=== PATIENT | male | born 1965 | race Caucasian/White ===

== ENCOUNTER 2022-10-30 07:57 | Day surgery (SDC) | payer MEDICARE, MEDICAID ==
[~2022-10-30] VITALS: Ht 167.6 cm; Wt 77.6 kg
[~2022-10-30 07:57] MED LIST: ASPI81CA PO; BACL10TA PO; GABA-1250 PO; HYDR-4798 PO; SERT-206 PO; SIMV20TA20 PO; TAMS0.4C36 PO
[2022-10-30] MEDS ORDERED: IODIXANOL 320MG/ML 100ML BTL IV ONE (09:34)
[2022-10-30] MEDS ORDERED: LIDOCAINE 2%HCL (LOCAL ANESTH.) INJ 20ML MDV ONE (09:34)
[2022-10-30] MEDS ORDERED: ANGIOMAX 250 MG VIAL IV ONE (09:36)
[2022-10-30] MEDS ORDERED: VERAPAMIL 2.5MG/ML INJ 2ML VIAL IV ONE (09:36)
[2022-10-30] MEDS ORDERED: fentaNYL CITRATE 100 MCG/2 ML VL ONE (09:36)
[2022-10-30] MEDS ORDERED: MIDAZOLAM HCL 2MG/2ML 2ml VIAL (1mg/ml) ONE (09:36)
[2022-10-30] MEDS ORDERED: SODIUM CHL 0.9% 0 ML ONE (09:37)
[2022-10-30] MEDS ORDERED: HEPARIN SODIUM (PORCINE) 5000 UNITS/ML 1ML VIAL ONE (09:42)
== END 2022-10-30 12:00 | disposition home or self-care (01) ==
LOC: CATH 07:57
PROVIDERS: ATTEND Internal Medicine
DX: R94.39 Abnormal result of other cardiovascular function study (principal); I20.9 Angina pectoris, unspecified; F41.8 Other specified anxiety disorders; E78.5 Hyperlipidemia, unspecified; N40.0 Benign prostatic hyperplasia without lower urinary tract symptoms; J43.9 Emphysema, unspecified; F17.210 Nicotine dependence, cigarettes, uncomplicated; Z79.82 Long term (current) use of aspirin; Z79.1 Long term (current) use of non-steroidal anti-inflammatories (NSAID); Z88.6 Allergy status to analgesic agent; Z79.891 Long term (current) use of opiate analgesic; Z79.899 Other long term (current) drug therapy
CPT/HCPCS: 76937; 93458; C1725; C1894; J1644; J2250; J3010; Q9967; 99152

== ENCOUNTER 2023-10-16 09:38 | Emergency (ER) | payer OTHER, MEDICAID ==
[~2023-10-16] VITALS: Ht 167.6 cm; Wt 75.4 kg
[2023-10-16 11:02] VITALS: BP 129/77; PULSE 65; RESP 16; TEMP 98.5; O2SAT 95
[2023-10-16] MEDS: GABAPENTIN 300 MG CAP PO ONE (11:37)
[2023-10-16] MEDS: DexAMETHasone SOD PHOS 10MG/1ML VIAL INJ IM ONE (11:38)
[2023-10-16] MEDS ORDERED: GABA-1250 PO (12:09)
[2023-10-16] MEDS ORDERED: PRED20TA2 PO (12:09)
[2023-10-16] MEDS ORDERED: METH-1181 PO (12:09)
== END 2023-10-16 12:30 | disposition home or self-care (01) ==
LOC: ER 09:38
DX: G24.3 Spasmodic torticollis (principal); Z79.82 Long term (current) use of aspirin; Z79.899 Other long term (current) drug therapy; Z88.8 Allergy status to other drugs, medicaments and biological substances
CPT/HCPCS: 72125; 96372; 99285; J1100

== ENCOUNTER → 2023-11-14 | Outpatient (CLI) | payer OTHER ==
[~2023-11-14] MED LIST changes: +METH-1181 PO; +PRED20TA2 PO
[2023-11-14 10:44] LABS: Urine Bacteria None Seen /hpf (None Seen)
[2023-11-14 11:15] LABS: Basophils # (auto) 0.1 10 ^3/uL (0-0.2); Hematocrit 38.5 % (41.0-53.0); Hemoglobin 13.5 g/dL (13.5-17.5); Lymphocytes # (auto) 2.6 10 ^3/uL (0.4-5.4); Mean Corpuscular Hgb Conc. 35.2 g/dL (32.0-36.0); Monocytes # (auto) 0.9 10 ^3/uL (0-1.3); Monocytes % (auto) 12.5 % (0.0-12.0); Neutrophils # (auto) 3.2 10 ^3/uL (1.6-8.6)
[2023-11-14 11:16] LABS: Urine Blood Negative /uL (Negative); Urine Clarity Clear (Clear); Urine Color Yellow (Yellow); Urine Mucus FEW (None Seen); Urine Protein, UAD TRACE (Negative); Urine Specific Gravity 1.034 (1.001-1.035); Urine Urobilinogen Normal (Negative); Urine WBC 1 /hpf (0 - 3); Urine pH 5.5 (5.0-9.0)
[2023-11-14 11:17] LABS: Basophils % (auto) 0.7 % (0.0-2.0); Eosinophils # (auto) 0.4 10 ^3/uL (0-0.8); Eosinophils % (auto) 5.2 % (0.0-7.0); Lymphocytes % (auto) 36.5 % (10.0-50.0); Mean Corpuscular Hemoglobin 32.9 pg (28.0-32.0); Mean Corpuscular Volume 93.6 fL (80.0-100.0); Neutrophils % (auto) 45.1 % (37.0-80.0); Nucleated Red Blood Cells % 0.1 %; Red Blood Cells 4.11 10^6/uL (4.5-5.90); Red Cell Distribution Width 13.7 % (11.8-14.3); White Blood Cell 7.1 10^3/uL (4.4-10.8)
[2023-11-14 11:24] LABS: Anion Gap 2 (5-15); Calcium 9.2 mg/dL (8.5-10.1); Carbon Dioxide 24 mmol/L (20-30); Chloride 113 mmol/L (98-107); Potassium 4.3 mmol/L (3.5-5.1); Prostate Specific Antigen 0.62 ng/mL (0.0-4.0); Sodium 139 mmol/L (136-145)
[2023-11-14 11:29] LABS: Folate (Folic Acid) 17.04 ng/mL (>5.38)
[2023-11-14 11:30] LABS: Blood Urea Nitrogen 8 mg/dL (9-23); Glucose 118 mg/dL (74-106); Leuteinizing Hormone 7.1 IU/L (1.5-9.3); Triglycerides 168 mg/dL (< 150)
[2023-11-14 11:31] LABS: Cholesterol 110 mg/dL (< 200); LDL Cholesterol 53 mg/dL (< 100)
[2023-11-14 11:32] LABS: HDL Cholesterol 27 mg/dL (40-59)
[2023-11-14 11:51] LABS: Uric Acid 5.8 mg/dL (3.7-9.2)
== END | disposition home or self-care (01) ==
LOC: LAB 10:34
PROVIDERS: ATTEND Internal Medicine
DX: Z12.5 Encounter for screening for malignant neoplasm of prostate (principal); E78.1 Pure hyperglyceridemia; Z68.26 Body mass index [BMI] 26.0-26.9, adult; Z79.899 Other long term (current) drug therapy
CPT/HCPCS: 36415; 80048; 80061; 81001; 82306; 82607; 82746; 83002; 83036; 84153; 84443; 84550; 85025; 87086

== ENCOUNTER 2023-12-19 15:33 | Emergency (ER) | payer OTHER, MEDICAID ==
[~2023-12-19] VITALS: Ht 167.6 cm; Wt 80.0 kg
[2023-12-19 17:09] VITALS: BP 120/75; PULSE 95; RESP 18; TEMP 98.3; O2SAT 97
== END 2023-12-19 18:06 | disposition home or self-care (01) ==
LOC: ER 15:33
DX: S83.8X2A Sprain of other specified parts of left knee, initial encounter (principal); S93.492A Sprain of other ligament of left ankle, initial encounter; S63.592A Other specified sprain of left wrist, initial encounter; Z88.8 Allergy status to other drugs, medicaments and biological substances; Z79.899 Other long term (current) drug therapy; W01.0XXA Fall on same level from slipping, tripping and stumbling without subsequent striking against object, initial encounter; Y93.89 Activity, other specified; Y92.89 Other specified places as the place of occurrence of the external cause; Y99.8 Other external cause status
CPT/HCPCS: 73110; 73562; 73610

== ENCOUNTER → 2024-03-10 | Outpatient (CLI) | payer OTHER, MEDICAID ==
[~2024-03-10] MED LIST changes: -TAMS0.4C36 PO; +TAMS0.4C39 PO
== END | disposition home or self-care (01) ==
LOC: XYW 11:03
PROVIDERS: ATTEND Internal Medicine
DX: E04.1 Nontoxic single thyroid nodule (principal); F17.210 Nicotine dependence, cigarettes, uncomplicated; Z88.6 Allergy status to analgesic agent; Z79.82 Long term (current) use of aspirin
CPT/HCPCS: 10005; 76536; 76942

== ENCOUNTER → 2024-05-01 | Outpatient (CLI) | payer OTHER, MEDICAID ==
[2024-05-01 13:49] LABS: Basophils # (auto) 0.1 10 ^3/uL (0-0.2); Basophils % (auto) 0.8 % (0.0-2.0); Eosinophils # (auto) 0.4 10 ^3/uL (0-0.8); Eosinophils % (auto) 3.2 % (0.0-7.0); Hematocrit 36.9 % (41.0-53.0); Hemoglobin 12.5 g/dL (13.5-17.5); Lymphocytes # (auto) 3.2 10 ^3/uL (0.4-5.4); Lymphocytes % (auto) 25.8 % (10.0-50.0); Mean Corpuscular Hemoglobin 31.7 pg (28.0-32.0); Mean Corpuscular Hgb Conc. 33.8 g/dL (32.0-36.0); Mean Corpuscular Volume 93.8 fL (80.0-100.0); Monocytes # (auto) 1.4 10 ^3/uL (0-1.3); Monocytes % (auto) 10.9 % (0.0-12.0); Neutrophils # (auto) 7.4 10 ^3/uL (1.6-8.6); Neutrophils % (auto) 59.3 % (37.0-80.0); Nucleated Red Blood Cells % 0.1 %; Platelet Count (auto) 401 10^3/uL (140-450); Red Blood Cells 3.94 10^6/uL (4.5-5.90); Red Cell Distribution Width 13.8 % (11.8-14.3); White Blood Cell 12.5 10^3/uL (4.4-10.8)
[2024-05-01 14:16] LABS: Alanine Aminotransferase 25 U/L (7-40); Alkaline Phosphatase 110 U/L (46-116); Anion Gap 8 (5-15); Aspartate Aminotransferase 20 U/L (13-40); BUN/Creatinine Ratio 7.5 (10.0-20.0); Calcium 9.9 mg/dL (8.7-10.4); Carbon Dioxide 24 mmol/L (20-31); Chloride 106 mmol/L (98-107); Potassium 3.7 mmol/L (3.5-5.1); Sodium 138 mmol/L (136-145)
[2024-05-01 14:17] LABS: Albumin 4.3 g/dL (3.2-4.8); Bilirubin, Total 0.3 mg/dL (0.2-1.0); Blood Urea Nitrogen 8 mg/dL (9-23); Glucose 108 mg/dL (74-106); Total Protein 6.8 g/dL (5.7-8.2)
[2024-05-02 08:06] LABS: Immunoglobulin A 174 mg/dL (90-386); Immunoglobulin G, Serum 829 mg/dL (603-1613); Immunoglobulin M 127 mg/dL (20-172)
== END | disposition home or self-care (01) ==
LOC: LAB 13:25
PROVIDERS: ATTEND Internal Medicine
DX: K14.8 Other diseases of tongue (principal); E04.1 Nontoxic single thyroid nodule
CPT/HCPCS: 36415; 80053; 82232; 82784; 84155; 84165; 85025

== ENCOUNTER → 2024-06-15 | Outpatient (CLI) | payer OTHER ==
[2024-06-15 12:36] LABS: Basophils # (auto) 0.1 10 ^3/uL (0-0.2); Eosinophils # (auto) 0.2 10 ^3/uL (0-0.8); Hemoglobin 14.9 g/dL (13.5-17.5); Neutrophils # (auto) 3.2 10 ^3/uL (1.6-8.6)
[2024-06-15 12:39] LABS: Basophils % (auto) 2.1 % (0.0-2.0); Eosinophils % (auto) 2.9 % (0.0-7.0); Hematocrit 43.6 % (41.0-53.0); Lymphocytes # (auto) 2.8 10 ^3/uL (0.4-5.4); Lymphocytes % (auto) 40.5 % (10.0-50.0); Mean Corpuscular Hemoglobin 31.9 pg (28.0-32.0); Mean Corpuscular Hgb Conc. 34.1 g/dL (32.0-36.0); Mean Corpuscular Volume 93.5 fL (80.0-100.0); Monocytes # (auto) 0.5 10 ^3/uL (0-1.3); Monocytes % (auto) 7.7 % (0.0-12.0); Neutrophils % (auto) 46.8 % (37.0-80.0); Platelet Count (auto) 546 10^3/uL (140-450); Red Blood Cells 4.67 10^6/uL (4.5-5.90); White Blood Cell 6.9 10^3/uL (4.4-10.8)
[2024-06-15 13:07] LABS: % Iron Saturation 21.4 % (20-55)
[2024-06-15 13:09] LABS: Alanine Aminotransferase 17 U/L (7-40); Anion Gap 7 (5-15); BUN/Creatinine Ratio 6.7 (10.0-20.0); Calcium 10.2 mg/dL (8.7-10.4); Carbon Dioxide 23 mmol/L (20-31); Glucose 90 mg/dL (74-106); Magnesium 2.3 mg/dL (1.6-2.6); Potassium 4.3 mmol/L (3.5-5.1); Sodium 138 mmol/L (136-145)
[2024-06-15 13:10] LABS: Albumin 4.8 g/dL (3.2-4.8); Aspartate Aminotransferase 18 U/L (13-40); Chloride 108 mmol/L (98-107); Free T3 3.65 pg/mL (2.3-4.2); T3 Total 1.16 ng/mL (0.60-1.81)
[2024-06-15 13:11] LABS: Alkaline Phosphatase 129 U/L (46-116); Bilirubin, Total 0.2 mg/dL (0.2-1.0); Blood Urea Nitrogen 7 mg/dL (9-23); Free T4 (Free Thyroxine) 0.96 ng/dL (0.89-1.76); Thyroid Stimulating Hormone 0.45 uIU/mL (0.55-4.78); Total Protein 7.5 g/dL (5.7-8.2)
[2024-06-16 08:06] LABS: Thyroxine (T4) 5.8 ug/dL (4.5-12.0)
== END | disposition home or self-care (01) ==
LOC: LAB 11:52
PROVIDERS: ATTEND Nurse Practitioner
DX: E04.1 Nontoxic single thyroid nodule (principal); K14.8 Other diseases of tongue; Z88.6 Allergy status to analgesic agent; Z88.2 Allergy status to sulfonamides
CPT/HCPCS: 36415; 80053; 82977; 83540; 83550; 83615; 83735; 84100; 84436; 84439; 84443; 84480; 84481; 84550; 85025; 86376

== ENCOUNTER 2024-09-24 06:04 | Inpatient (IN) | payer OTHER ==
[2024-09-21 09:40] LABS: Urine Bacteria None Seen /hpf (None Seen)
[2024-09-21 09:43] LABS: Basophils # (auto) 0.1 10 ^3/uL (0-0.2); Eosinophils # (auto) 0.2 10 ^3/uL (0-0.8); Hemoglobin 15.4 g/dL (13.5-17.5); White Blood Cell 9.6 10^3/uL (4.4-10.8)
[2024-09-21 09:44] LABS: Basophils % (auto) 1.1 % (0.0-2.0); Eosinophils % (auto) 2.3 % (0.0-7.0); Hematocrit 45.5 % (41.0-53.0); Lymphocytes # (auto) 2.9 10 ^3/uL (0.4-5.4); Lymphocytes % (auto) 30.1 % (10.0-50.0); Mean Corpuscular Hgb Conc. 33.9 g/dL (32.0-36.0); Mean Corpuscular Volume 91.4 fL (80.0-100.0); Monocytes # (auto) 0.6 10 ^3/uL (0-1.3); Monocytes % (auto) 6.6 % (0.0-12.0); Neutrophils # (auto) 5.7 10 ^3/uL (1.6-8.6); Neutrophils % (auto) 59.9 % (37.0-80.0); Platelet Count (auto) 523 10^3/uL (140-450); Red Blood Cells 4.98 10^6/uL (4.5-5.90); Red Cell Distribution Width 14.6 % (11.8-14.3)
[2024-09-21 09:48] LABS: Urine Blood Negative /uL (Negative); Urine Clarity Clear (Clear); Urine Color Light-Yellow (Yellow); Urine Protein, UAD Negative (Negative); Urine Squamous Epithelial Cell FEW /hpf (<5); Urine Urobilinogen Normal (Negative); Urine WBC < 1 /HPF (0-3); Urine pH 5.5 (5.0-9.0)
[2024-09-21 10:05] LABS: INR 0.97 (0.9-1.15); Partial Thromboplastin Time 34.6 SEC (24.5-34.5); Prothrombin Time 10.3 sec (9.3-11.8)
[2024-09-21 10:09] LABS: Alanine Aminotransferase 14 U/L (7-40); Anion Gap 10 (5-15); BUN/Creatinine Ratio 12.1 (10.0-20.0); Bilirubin, Total 0.3 mg/dL (0.2-1.0); Blood Urea Nitrogen 12 mg/dL (9-23); Carbon Dioxide 20 mmol/L (20-31); Potassium 3.7 mmol/L (3.5-5.1); Sodium 139 mmol/L (136-145); Total Protein 7.8 g/dL (5.7-8.2)
[2024-09-21 10:12] LABS: Albumin 4.9 g/dL (3.2-4.8); Alkaline Phosphatase 119 U/L (46-116); Aspartate Aminotransferase 12 U/L (13-40); Calcium 10.4 mg/dL (8.7-10.4); Chloride 109 mmol/L (98-107); Glucose 125 mg/dL (74-106)
[2024-09-24] VITALS (7 sets, daily range): BP systolic 123–137; BP diastolic 65–81; PULSE 52–85; RESP 14–18; TEMP 97.4–97.9; O2SAT 94–96
[~2024-09-24] VITALS: Ht 167.6 cm; Wt 81.5 kg
[~2024-09-24 06:04] MED LIST changes: -ASPI81CA PO; -BACL10TA PO; -HYDR-4798 PO; -METH-1181 PO; -SIMV20TA20 PO
[2024-09-24] MEDS ORDERED: ceFAZolin 2 GM/D5W50ml 50 ML IV ONE (06:15)
[2024-09-24] MEDS ORDERED: levoFLOXacin 500MG 100 ML IV ONE (06:38)
[2024-09-24] MEDS ORDERED: TRANEXAMIC ACID 20 ML ONE (06:41)
[2024-09-24] MEDS ORDERED: SUCCINYLCHOLINE CHLORIDE 20 MG/ML 10ML VIAL IV ONE (07:15)
[2024-09-24] MEDS ORDERED: ROCURONIUM 10MG/ML 10ML VIAL IV ONE (07:15)
[2024-09-24] MEDS ORDERED: HYDROmorphone HCL 2 MG/ML VL/or syr ONE (07:25)
[2024-09-24] MEDS ORDERED: MIDAZOLAM HCL 2MG/2ML 2ml VIAL (1mg/ml) ONE (07:25)
[2024-09-24] MEDS ORDERED: ONDANSETRON HCL 4 MG/2 ML VIAL ONE (07:25)
[2024-09-24] MEDS ORDERED: DexAMETHasone SOD PHOS 10MG/1ML VIAL INJ ONE (07:25)
[2024-09-24] MEDS ORDERED: fentaNYL CITRATE 100 MCG/2 ML VL ONE ×2 (07:25→09:51)
[2024-09-24] MEDS ORDERED: KETAMINE 50mg/ML 1ml syringe ONE (07:25)
[2024-09-24] MEDS ORDERED: fentaNYL CITRATE 5 ML ONE (07:25)
[2024-09-24] MEDS ORDERED: LIDOCAINE 2% TOPICAL JELLY 5 ML URJT TOP ONE (07:25)
[2024-09-24] MEDS ORDERED: PROPOFOL 10 MG/ML 20 ML IV ONE ×2 (07:25→09:40)
[2024-09-24] MEDS ORDERED: LIDOCAINE 1% INJ PF 5ML AMP ONE (07:25)
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
[2024-09-24] MEDS ORDERED: SODIUM CHLORIDE LOCK 40 ML ONE (09:40)
[2024-09-24] MEDS ORDERED: GLYCOPYRROLATE 0.2 MG/ML 1ML VIAL ONE (09:43)
[2024-09-24] MEDS ORDERED: NEOSTIGMINE 1 MG/ML INJ (10mg/10ML VIAL) ONE (09:43)
[2024-09-24] MEDS ORDERED: SODIUM CHLORIDE LOCK 20 ML ONE (09:52)
--- NOTE | 2024-09-24 10:38 | DVHOP2 ---
Operative Report - 2 Report Details Date: 09/24/24 Preop Diagnosis: cervical spinal stenosis with incapacitating radiculopathy Postop Diagnosis: same Surgeon: Terry Phillip MD Recreation Therapy Aide: Denia Meade NP Anesthesiologist: dr. sandoval Anesthesia: General Consent: The patient was informed of the risks and benefits of the procedure. These include but are not limited to complications of anesthesia, postoperative infection, incomplete relief of symptoms, recurrence of symptoms, damage to blood vessels, nerves and tendons, deep venous thrombosis, pulmonary embolism and possible need for repeat surgery in the future. Name of Procedure Performed see detailed note Procedure Details Procedure Details: Pre Op Diagnosis: Cervical Degenerative Disk Disease and Severe Spinal Stenosis Causing incapacitating neck pain, radiculopathy and progressive neurologic deficit Post Op Diagnosis: Cervical Degenerative Disk Disease and Spinal Stenosis Causing incapacitating neck pain, radiculopathy and progressive neurologic deficit Procedure: Cervical 3 to 4 anterior cervical discectomy with Cervical 3-4 foraminotomies and facetectomies to decompression the spinal canal and Cervical 4 nerve roots Cervical 4 to 5 anterior cervical discectomy with Cervical 4-5 foraminotomies and facetectomies to decompression the spinal canal and Cervical 5 nerve roots Cervical 3-5 anterior cervical Fusion Cervical 3-5 anterior cervical instrumentation with freestanding cages Cervical 3-4 placement of allograft prosthetic device Cervical 4-5 placement of allograft prosthetic device Surgeon: Terry Phillip MD Anesthesia: General Assist: Denia Meade NP Fluids and EBL: see anesthesia note Procedure Note: The patient was seen in the Pre-anesthesia Care Unit and the site of the inci ilia was initialed by me with a felt tipped marker. All questions by the patient were answered to the satisfaction of the patient and the chart was reviewed. The patient was taken to the operating room and placed supine on the [facility] [place] top table. General anesthesia was induced. Neuromonitoring leads were placed. A rolled towel was placed between the shoulder blades to hyperextend out the chest which will allow better exposure of the cervical spine. Halter traction to 10 pounds was placed. The arms were padded and adducted to the patients side making sure all pulses in the hands were present. Tape traction was undertaken on the shoulders to give us better radiographic exposure of the distal cervical spine. A gel-pad was placed under the occiput and 5 degrees of extension was placed on the neck without adverse effects to the patient. The anterior neck was prepped and draped. Pre-operative antibiotics were given 30 minutes prior to the start of the procedure. A c-arm fluoroscope was used to ashley out the incision site. At this time, a time out was taken per usual protocol. Next an incision was made through the skin with a 15 blade scalpel through the subcutaneous tissue down to the platysma. Self-retainers were placed. The platysma was incised along the longitudinal border with a Metzenbaum scissors. Blunt dissection was made through the deep cervical and pre-tracheal fascia taking care to protect the carotid sheath laterally and the Trachea/esophagus medially. The dissection was carried down to the prevertebral fascia. Any crossing vessels were ligated using a vascular clip or coagulated with a bovie. An esophageal retractor was next used to retract the trachea/esophagus and a bent [address] through the anterior annulus of the cervical disk and a lateral C-arm fluoroscopic image was taken to confirm that we were at the correct level. Next, bovie electrocautery was used to expose the bones of cervical 3,4,5, and bipolar electrocautery was used to lift up the Longus colli and capitus muscles. Black-Belt Self Retainers were used to retract the longus colli and capitus muscles bilaterally as well as the trachea/esophagus to the right and the carotid sheath to the left. Smooth thin Black-Belt retractors were placed p roximally and distally and a needle was placed again in the anterior annulus of the disk and an image taken to confirm the correct level. Next, straight and curved curettes removed the remainder of the disks all the way down to the posterior longitudinal ligament. Carefully, a Kerison number one rongeur incised the posterior longitudinal ligament at the lateral end of the above disks and using a micro, blunt tip nerve hook to separate the posterior longitudinal ligament from the dura, alternating 1 mm and 2 mm Kerison rongeurs removed the posterior longitudinal ligament. Next, Kerison 1mm and 2 mm rongeurs were alternated to get under the uncinate processes and undercut them to perform foraminotomies and facetectomies at the cervical 3/4 and 4/5 levels to decompress the central canal and cervical 4,5 nerve roots. Next the c-arm fluoroscope was wheeled into the field and a l ateral image was obtained. Increasing size graft trials were used starting at a 5 mm thick size until the proper tension in the disk space and height synagogue obtained. We then placed final free standing cages at C3/4 and 4/5. Both were 7mm in thickness. Satisfactory placement was confirmed in the AP and lateral views using a C-arm fluoroscope. Copious irrigation of the wound with sterile saline and all bleeding was controlled before closure initiated. At this point, a 10 Spanish round Parde[address] Drain was place deep to the Platysma muscle and the Platysma was approximated with one interrupted 0-Vicryl suture. The subcutaneous tissue was closed with interrupted 2-0 vicryl sutures and the skin was closed with curtis. Sterile dressings were placed and a cervical collar placed, the patient extubated, transferred to the stretcher and taken to the Recovery Room in unremarkable condition. Other Notes: Condition Stable Disposition Still a Patient TERRY PHILLIP MD September 24, 2024 10:38
[2024-09-24] MEDS ORDERED: NITROGLYCERIN 0.4 MG SL TAB SL PRN (10:45)
[2024-09-24] MEDS ORDERED: MORPHINE SULFATE INJ 2 MG/ml SYRG IV PRN ×2 (10:45→12:00)
[2024-09-24] MEDS ORDERED: ACETAMINOPHEN 325 MG TAB PO PRN (10:45)
[2024-09-24] MEDS ORDERED: ONDANSETRON HCL 4 MG/2 ML VIAL IV PRN (10:45)
--- NOTE | 2024-09-24 10:54 | POSTOP ---
Post-Operative Note Post-Operative Note Preop Diagnosis Cervical degenerative disc disease and spinal stenosis causing incapacitating neck pain, radiculopathy and progressive neurologic deficit Postop Diagnosis: Cervical degenerative disc disease and spinal stenosis causing incapacitating neck pain, radiculopathy and progressive neurologic deficit Operation performed Cervical 3-5 anterior cervical diskectomy and fusion Specimen None Anesthesia: General Anesthesiologist: Dr. Yun Blood Loss(fluid mgmt) 50 mL Tourniquet Time None Surgeon Dr. Terry Phillip Stamp Classifier Denia Donnelly OPTICAL GLASS SILVERER Implant 7 mm spacers x2 3.5 x 14 mm screws x4 Complications & Mgmt None Additional Remarks Disposition: -Pending -Discharge RX: Pending -Follow up appointment: with Dr Phillip on you are scheduled postoperative appointment date and time [id number] [facility] [address] Dorantes [address] [place] [id number] -Pain: - IV pain meds post op day 1, with PO supplementation, goal is to progress weaning off IV medications and control pain with PO only. morphine 1mg q 4 hours (PAIN 7-10) - P.O. analgesics:Tylenol 650MG (PAIN 1-3) [place] 10/325 mg (PAIN 4-6) - Muscle relaxers scheduled administration. This is a beneficial medications for the incisional pain as it is mostly related to muscle spasms. Flexeril 10 mg TID - Cepacol throat lozenges as needed for sore throat -Antibiotics Operative recommendations: -Postoperative dose:-Post operative antibiotics cefazolin 1 g IV piggyback every 8 hours x 48 hours total of 6 doses -DVT PPX: -Hold all chemical DVT/ blood thinners for 14 days postoperatively -use mechanical DVT PPX such as SCD's, ambulation -Activity: -Pending PT evaluation and patients progression -Sit at side of bed for meals -Goal: Ambulate independently and safely (may use assistive devices if needed) -Medical Therapy goals: -Afebrile- Patient may develop a expected post operative fever by day 2-3, this may not be accompanied with a elevation in WBC. if fever develops: Acetaminophen for fever. Albuterol nebulizer Tx every 12 hours for 24 hours to facilitate adequate lung expansion and prevent development of atelectasis. -Euglycemic: bloods sugars under 130mmol/L for optimal healing -Normotensive: Avoid events of hypertension. This helps to keep post operative healing intact and avoids destabilization of beneficial hemostatic coagulation. Drains -Bulb drains: record output and characteristics of the drainage EVERY 6 HOURS- if there is no output indicate this by documenting 0ml output in note.. These will be to thumbprint compression unless otherwise ordered. Record output as well as amount in a note at least every 6 houtrs- more if indicated. Wound drainage is described by type, color, amount, and odor. Drainage can be 1 serous: Clear and thin, may be present in healing healthy wound. 2 serosanguineous containing blood may also be present and healthy healing wound 3. Sanguinous primarily blood 4. Purulent this is thick, white, and pus like. It may be indicated to give of a infection and should constitute a call to the provider immediately with the plan that the sample should be cultured. -Lee: -DC in OR -Dressings -Anterior cervical patients: Initial surgical dressing may be reinforced if needed. If there is excessive bleeding, leaking, drainage in the bulb drain notify provider -Bowel management: -Colace 100mg bid -Diet: -Clear liquid diet and advance as patient tolerates within dietary limitations ( example: diabetic, Cardiac) -Incentive Spirometer: -10 x hour while awake, RN please educate and observe repeat demonstration, have IS at bedside POD #1 -X-rays: - none indicated at this time -Consults: -Physical Therapy evaluation, treatment recommendations, and discharge recommendations Call with questions Nallely Donnelly ACNP- Orthopaedic Spine Surgery nurse practitioner For Dr Nicky Phillip Patient was examined, chart reviewed, labs evaluated, and diagnostic studies and findings analyzed. Case was discussed with Dr. Terry Phillip who formulated the plan of care. This medical document was created using an electronic medical record system with [employer] dictation system. Although this document has been carefully reviewed, there might still be some phonetic and typographical errors. These areas are purely typographical due to imperfections of the software programs, and do not reflect any compromise in the patient's medical care. Date 09/24/24 Time 10:48 DENIA DONNELLY NP September 24, 2024 10:54
[2024-09-24] MEDS ORDERED: THROAT LOZENGES(CEPASTAT) MT PRN (11:00)
[2024-09-24] MEDS ORDERED: MORPHINE SULFATE 4 MG/ML SYR/VIAL IV PRN (11:00)
[2024-09-24] MEDS ORDERED: METOCLOPRAMIDE HCL 5MG/ml INJ 2ml VIAL IV ONE (11:00)
[2024-09-24] MEDS ORDERED: HYDROmorphone HCL 2 MG/ML VL/or syr IV PRN (11:00)
[2024-09-24] MEDS: HYDROmorphone HCL 2 MG/ML VL/or syr IV PRN (11:19)
--- NOTE | 2024-09-24 15:40 | DVH ---
FLUOROSCOPY TIME: 10 seconds TECHNIQUE: Intraoperative radiographs of the cervical spine were obtained. COMPARISON: None FINDINGS: Refer to intraoperative report for further evaluation. IMPRESSION: Refer to intraoperative report for further evaluation.
[2024-09-24] MEDS ORDERED: TRAZ-184 PO (15:56)
[2024-09-24] MEDS ORDERED: PERCOT PO (15:56)
[2024-09-24] MEDS: CYCLOBENZAPRINE HCL 10 MG TAB PO SCH (16:15)
[2024-09-24] MEDS: ceFAZolin 1GM/50ML 50 ML IV SCH (16:16)
[2024-09-24] MEDS: D5W/SOD CHLO 0.9% 1,000 ML IV SCH (16:28)
[2024-09-24] MEDS: HYDROcodone-ACET 10/325MG TAB PO PRN (16:37)
[2024-09-24] MEDS: MORPHINE SULFATE INJ 2 MG/ml SYRG IV PRN (20:24)
[2024-09-24] MEDS: DOCUSATE SOD 100 MG CAP PO SCH (22:35)
[2024-09-25 01:00] VITALS: BP 129/70; PULSE 77; RESP 19; TEMP 97.9; O2SAT 95
[2024-09-25 05:00] VITALS: BP 141/92; PULSE 77; RESP 18; TEMP 97.8; O2SAT 93
[2024-09-25 08:00] VITALS: BP 152/87; PULSE 67; RESP 18; TEMP 97.7; O2SAT 96
--- NOTE | 2024-09-25 11:47 | DVHPN2 ---
Progress Note - Surgical Date Seen: September 25, 2024 Post op day Post op day: 1 Subjective Patient reports: No new complaints, Feels better Review of Systems: HEENT:Normal, CVS:Normal, RESPIRATORY:Normal, GI:Normal, :Normal, MSK:Normal, NEURO:Normal Objective Vital signs Vital Sign Date Time Temp Pulse Resp B/P (MAP) Pulse Ox O2 Delivery O2 Flow Rate FiO2 09/25/24 09:38 67 18 152/87 09/25/24 08:00 97.7 96 97.7 09/25/24 08:00 Room Air* 0 21 Total Intake and Output 09/24/24 09/24/24 09/25/24 15:00 23:00 07:00 Intake Total 830 ml 1200 ml Output Total 0 ml Balance 0 ml 830 ml 1200 ml Medications Current Medications Medications Dose Ordered Sig/Frank Route Start Time Stop Time Status Last Admin Dose Admin Dextrose/Sodium Chloride 1,000 ml @ 100 mls/hr Q10H IV 09/24/24 10:45 09/24/24 16:28 100 MLS/HR Ondansetron HCl 4 mg Q4HP PRN IV 09/24/24 10:45 Acetaminophen 650 mg Q6HP PRN PO 09/24/24 10:45 Acetaminophen/ Hydrocodone Bitart 1 tab Q6HP PRN PO 09/24/24 10:45 09/25/24 04:19 1 TAB Morphine Sulfate 1 mg Q4HP PRN IV 09/24/24 10:45 09/25/24 09:38 1 MG Cyclobenzaprine HCl 10 mg TID PO 09/24/24 14:00 09/25/24 05:24 10 MG Docusate Sodium 100 mg BID PO 09/24/24 22:00 09/25/24 09:36 100 MG Cefazolin Sodium 50 ml @ 100 mls/hr Q8HR IV 09/24/24 14:00 09/26/24 06:29 09/25/24 05:28 100 MLS/HR Nitroglycerin 0.4 mg Q5MINP PRN SL 09/24/24 10:45 Morphine Sulfate 2 mg Q30M PRN IV 09/24/24 10:45 Throat Lozenges 1 osei Q2HP PRN MT 09/24/24 11:00 Tamsulosin HCl 0.8 mg DAILY PO 09/26/24 10:00 Laboratory Laboratory Tests 09/21/24 09:35 Test 09/21/24 09:35 Range/Units Serum Glucose 125 H 74-106 mg/dL Examination: GENERAL:Normal, HEENT:Normal, NECK:Normal (Patient left anterior neck surgical site is well approximated with curtis minimal swelling drain is intact with minimal drainage in the past 24 hours), LUNGS:Normal, CVS:Normal, ABDOMEN:Normal, MSK:Normal (Patient is up and ambulating in his room requesting to go home, pain is under control.), SKIN:Normal (See neck assessment), NEURO:Normal (Patient reports extreme resolution in his preoperative symptoms), :Normal Problem List/Assessment/Plan Problems: (1) Postoperative pain after spinal surgery (2) Muscle spasm of back Assessment and Plan Events of the day, Drain removed New dressing applied, patient able to move his head through normal range of motion with slight stiffness when turning to the right. Patient is tolerating food, ambulating well pain is under control he is passing gas Patient is progress to discharge Disposition: Home -Discharge RX: Oral analgesics and muscle relaxers sent to patient's preferred pharmacy -Follow up appointment: with Dr Phillip on you are scheduled postoperative appointment date and time [phone] [id number] [facility] [address] Dor[address] [place] [phone] -Pain: - IV pain meds post op day 1, with PO supplementation, goal is to progress weaning off IV medications and control pain with PO only. morphine 1mg q 4 hours (PAIN 7-10) - P.O. analgesics:Tylenol 650MG (PAIN 1-3) [place] 10/325 mg (PAIN 4-6) - Muscle relaxers scheduled administration. This is a beneficial medications for the incisional pain as it is mostly related to muscle spasms. Flexeril 10 mg TID - Cepacol throat lozenges as needed for sore throat -Antibiotics Operative recommendations: -Postoperative dose:-Post operative antibiotics cefazolin 1 g IV piggyback every 8 hours x 48 hours total of 6 doses -DVT PPX: -Hold all chemical DVT/ blood thinners for 14 days postoperatively -use mechanical DVT PPX such as SCD's, ambulation -Activity: -Pending PT evaluation and patients progression -Sit at side of bed for meals -Goal: Ambulate independently and safely (may use assistive devices if needed) -Medical Therapy goals: -Afebrile- Patient may develop a expected post operative fever by day 2-3, this may not be accompanied with a elevation in WBC. if fever develops: Acetaminophen for fever. Albuterol nebulizer Tx every 12 hours for 24 hours to facilitate adequate lung expansion and prevent development of atelectasis. -Euglycemic: bloods sugars under 130mmol/L for optimal healing -Normotensive: Avoid events of hypertension. This helps to keep post operative healing intact and avoids destabilization of beneficial hemostatic coagulation. Drains -Bulb drains: record output and characteristics of the drainage EVERY 6 HOURS- if there is no output indicate this by documenting 0ml output in note.. These will be to thumbprint compression unless otherwise ordered. Record output as well as amount in a note at least every 6 houtrs- more if indicated. Wound drainage is described by type, color, amount, and odor. Drainage can be 1 serous: Clear and thin, may be present in healing healthy wound. 2 serosanguineous containing blood may also be present and healthy healing wound 3. Sanguinous primarily blood 4. Purulent this is thick, white, and pus like. It may be indicated to give of a infection and should constitute a call to the provider immediately with the plan that the sample should be cultured. -Lee: -DC in OR -Dressings -Anterior cervical patients: Initial surgical dressing may be reinforced if needed. If there is excessive bleeding, leaking, drainage in the bulb drain notify provider -Bowel management: -Colace 100mg bid -Diet: -Clear liquid diet and advance as patient tolerates within dietary limitations ( example: diabetic, Cardiac) -Incentive Spirometer: -10 x hour while awake, RN please educate and observe repeat demonstration, have IS at bedside POD #1 -X-rays: - none indicated at this time -Consults: -Physical Therapy evaluation, treatment recommendations, and discharge recommendations Call with questions Nallely ABREU- Orthopaedic Spine Surgery nurse practitioner For Dr Nicky Phillip Patient was examined, chart reviewed, labs evaluated, and diagnostic studies and findings analyzed. Case was discussed with Dr. Terry Phillip who formulated the plan of care. This medical document was created using an electronic medical record system with [employer] system. Although this document has been carefully reviewed, there might still be some phonetic and typographical errors. These areas are purely typographical due to imperfections of the software programs, and do not reflect any compromise in the patient's medical care. Plan discussed with Plan discussed with: Patient, Other Visit Coding Surgery Date of Service if different f: September 25, 2024 Billing Provider: RAKESH DONNELLY NP Surgery Visit Codes: NOT BILLABLE RAKESH DONNELLY NP September 25, 2024 11:47
[2024-09-25 12:00] VITALS: BP 148/75; PULSE 61; RESP 18; TEMP 97.6; O2SAT 97
[2024-09-25 16:00] VITALS: BP 155/85; PULSE 75; RESP 16; TEMP 97.9; O2SAT 98
[2024-09-25] MEDS ORDERED: CYCL-611 PO (16:27)
[2024-09-25] MEDS ORDERED: HYDR-4798 PO (16:27)
[2024-09-25] MEDS ORDERED: DOCU-265 PO (16:27)
--- NOTE | 2024-09-25 16:34 | DVHDS2 ---
ASSESSMENT ASSESSMENT Hospital Course The patient arrived for a elective spine surgery with Dr. PHILLIP. Surgery went as planned with no complications. After a short stay in the PACU patient was admitted to the hospital for postoperative care and pain management over the course of 1 postoperative days the patient was able to tolerate a diet, ambulate independently, the pain has been managed with oral analgesics. The surgical site is well-approximated with sutures, some residual drainage continues from drain insertion sites after removal, however it is manageable with daily wound care and dressing changes. Some improvement to preoperative symptoms of extremities, strength and motion. There is new post operative pain that is localized to the surgical site. The patient will follow-up with Dr. Phillip for wound check and suture check or staple removal. You may shower and let the water run over your neck wound however you must pat it dry with sterile 4x4s gauze. Please do not use regular household towels. Keep your incision covered when you are out of your house or when you are wearing clothing that rub on your incision. He will also do not want to have a seatbelt rubbing on your incision. If you are at home and you have clothing that does not contact your incision you may leave it open to air. You may have some residual drainage from the drain site for the next 2-3 days which is normal it should be a very light pink or morro color fluid. If it changes or becomes bright red please call 911. 

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
[2024-09-26] MEDS ORDERED: TAMSULOSIN HYDROCHLORIDE 0.4 MG CAP PO SCH (10:00)
== END 2024-09-25 17:25 | disposition home health service (06) | DRG 473 ==
LOC: SUR 06:04 → OVERFLOW 11:03 → WEST WING 13:48
PROVIDERS: ADMIT Orthopaedic Surgery; ATTEND Orthopaedic Surgery
PROC: 0RG20A0 Fusion of 2 or more Cervical Vertebral Joints with Interbody Fusion Device, Anterior Approach, Anterior Column, Open Approach (ICD-10-PCS; 2024-09-24)
PROC: 01N10ZZ Release Cervical Nerve, Open Approach (ICD-10-PCS; 2024-09-24)
PROC: 00NW0ZZ Release Cervical Spinal Cord, Open Approach (ICD-10-PCS; 2024-09-24)
PROC: 4A11X4G Monitoring of Peripheral Nervous Electrical Activity, Intraoperative, External Approach (ICD-10-PCS; 2024-09-24)
PROC: 0RB30ZZ Excision of Cervical Vertebral Disc, Open Approach (ICD-10-PCS; principal; 2024-09-24 08:04)
DX: M48.02 Spinal stenosis, cervical region (principal); K59.9 Functional intestinal disorder, unspecified; M50.10 Cervical disc disorder with radiculopathy, unspecified cervical region; T40.605A Adverse effect of unspecified narcotics, initial encounter; Z79.899 Other long term (current) drug therapy; Y92.89 Other specified places as the place of occurrence of the external cause; G89.18 Other acute postprocedural pain; M62.830 Muscle spasm of back
CPT/HCPCS: 36415; 72040; 76000; 80053; 81001; 85025; 85610; 85730; 86850; 86900; 86901; 97163; G0378; J0330; J1100; J1956; J2250; J2405; J2704